=== PATIENT | male | born 1935 | race Caucasian/White ===

== ENCOUNTER → 2017-07-13 | Outpatient (CLI) | payer MEDICARE ==
[~2017-07-13] MED LIST: ACET325T14 PO; ACET650S12 PR; ALBU5SOL6 NPPBCONT; ALLO300T PO; AMIO400T4 PO; AMLO10TA2 PO; APIX5TAB PO; ASPI-515 PO; ATEN100T PO; ATOR20TA9 PO; BISA-49 PO; BISA10SU2 PR; CARV6.2512 PO; CITA40TA5 PO; CLON0.1T PO; DOCU-131 PO; ESOM40CA PO; FLUR15CA3 PO; FURO-92 PO; GUAI-103 PO; HYDR-3245 PO; HYDR-3341 PO; LISI-167 PO; LISI40TA PO; LISI5TAB7 PO; MAGN400O7 PO; MORP15TA3 PO; NITR0.3T SL; ONDA4TAB7 PO; OXYC5TAB3 PO; POLY17PO5 PO; POTA20PA25 PO; PROC5TAB40 PO; REGADENOSON 0.4 MG/5 ML SYRINGE ONE; SIMV20TA PO; SIMV20TA3 PO; TAMS-11 PO; TAMS0.4C2 PO; WARF3TAB PO; WARF4TAB PO; WARF7.5T PO; WARFARIN PO
== END | disposition home or self-care (01) ==
LOC: CFH 08:14
PROVIDERS: ATTEND Internal Medicine Cardiovascular Disease
DX: I25.10 Atherosclerotic heart disease of native coronary artery without angina pectoris (principal)
CPT/HCPCS: 78452; 93017; A9502; J2785

== ENCOUNTER → 2018-05-23 | Outpatient (CLI) | payer MEDICARE ==
[~2018-05-23] MED LIST changes: -AMIO400T4 PO; +AMIO400T5 PO
== END | disposition home or self-care (01) ==
LOC: CFH 12:34
PROVIDERS: ATTEND Physician Assistant Medical
DX: I25.9 Chronic ischemic heart disease, unspecified (principal); I45.10 Unspecified right bundle-branch block; I25.10 Atherosclerotic heart disease of native coronary artery without angina pectoris; I48.0 Paroxysmal atrial fibrillation
CPT/HCPCS: 78452; 93017; A9502; J2785

== ENCOUNTER → 2018-07-24 | Outpatient (CLI) | payer MEDICARE ==
[~2018-07-24] MED LIST changes: -AMLO10TA2 PO; +AMLO10TA6 PO; -REGADENOSON 0.4 MG/5 ML SYRINGE ONE
== END | disposition home or self-care (01) ==
LOC: CFH 10:38
PROVIDERS: ATTEND Physician Assistant Medical
DX: I08.1 Rheumatic disorders of both mitral and tricuspid valves (principal); I10 Essential (primary) hypertension; E78.5 Hyperlipidemia, unspecified; I25.10 Atherosclerotic heart disease of native coronary artery without angina pectoris; I48.0 Paroxysmal atrial fibrillation; R06.02 Shortness of breath; I42.9 Cardiomyopathy, unspecified; Z95.2 Presence of prosthetic heart valve; Z86.73 Personal history of transient ischemic attack (TIA), and cerebral infarction without residual deficits
CPT/HCPCS: 93306

== ENCOUNTER → 2018-08-09 | Outpatient (CLI) | payer MEDICARE ==
[~2018-08-09] MED LIST changes: +OMNIPAQUE 350 MG/ML, 100ML BOTTLE ONE
[2018-08-09 17:04] LABS: CREATININE 1.26 mg/dL (0.7-1.3)
== END | disposition home or self-care (01) ==
LOC: RAD 16:19
PROVIDERS: ATTEND Family Medicine
DX: I65.23 Occlusion and stenosis of bilateral carotid arteries (principal); G31.9 Degenerative disease of nervous system, unspecified; R41.3 Other amnesia
CPT/HCPCS: 36415; 70470; 82565; 93880; Q9967

== ENCOUNTER 2019-05-09 12:03 | Inpatient (IN) | payer MEDICARE ==
[2019-05-09] VITALS (7 sets, daily range): BP systolic 142–239; BP diastolic 77–108
[~2019-05-09] VITALS: Ht 172.7 cm; Wt 94.2 kg
[~2019-05-09 12:03] MED LIST changes: -AMLO10TA6 PO; +AMLO10TA8 PO; +ATOR20TA37 PO; -ATOR20TA9 PO; -CLON0.1T PO; +CLON0.1T22 PO; -OMNIPAQUE 350 MG/ML, 100ML BOTTLE ONE; +SODIUM CHLORIDE 0.9% 1,000 ML IV SCH
--- NOTE | 2019-05-09 12:35 | NUR ---
Assumed care of patient. C/O chest pain radiating to back since 0800. Took nitro x2 with mild relief. Hx aortic valve replacement and pacemaker. NAD. EKG done. Placed on NIBP, puls eox and case monitor. at bedside. Will continue to monitor.
[2019-05-09] MEDS ORDERED: NITR0.4T28 SL (12:39)
[2019-05-09] MEDS ORDERED: ASPIRIN 81 MG TABLET CHEW PO ONE (13:00)
[2019-05-09] MEDS ORDERED: ASPIRIN 81 MG TABLET CHEW ONE (13:09)
[2019-05-09 13:22] LABS: BASOPHILS # (AUTO) 0.03 x10^3/uL (0-0.1); BASOPHILS % (AUTO) 0 % (0-1); EOSINOPHILS # (AUTO) 0.23 x10^3/uL (0-0.4); EOSINOPHILS % (AUTO) 4 % (1-7); LYMPHOCYTES # (AUTO) 0.97 x10^3/uL (1-3.4); LYMPHOCYTES % (AUTO) 16 % (22-44); MD NO; MEAN CORPUSCULAR HEMOGLOBIN 31.9 pg (27.5-34.5); MEAN CORPUSCULAR HGB CONC 32.8 g/dL (33.2-36.2); MEAN CORPUSCULAR VOLUME 97.3 fL (81-97); MEAN PLATELET VOLUME 8.1 fL (7.4-10.4); MONOCYTES # (AUTO) 0.53 x10^3/uL (0.2-0.8); MONOCYTES % (AUTO) 9 % (2-9); NEUTROPHILS % (AUTO) 72 % (42-75); PLATELET COUNT 165 x10^3/uL (130-400); RED BLOOD COUNT 4.58 x10^6/uL (4.38-5.82); RED CELL DISTRIBUTION WIDTH 15.1 % (9.4-14.8)
[2019-05-09] MEDS ORDERED: hydrALAzine 20 MG/ML, 1ML ONE (13:27)
[2019-05-09] MEDS ORDERED: hydrALAzine 20 MG/ML, 1ML IV ONE (13:30)
[2019-05-09 13:32] LABS: ALANINE AMINOTRANSFERASE 22 U/L (12-78); ALBUMIN 3.8 g/dL (3.4-5.0); ANION GAP 8 mmol/L (5-15); CALCIUM 8.8 mg/dL (8.5-10.1); CHLORIDE 107 mmol/L (98-107); CREATININE 0.97 mg/dL (0.7-1.3)
--- NOTE | 2019-05-09 13:32 | NUR ---
BP = 176/87. MD aware. Hydralizine held.
[2019-05-09 13:36] LABS: ALKALINE PHOSPHATASE 151 U/L (45-117); BILIRUBIN,TOTAL 0.5 mg/dL (0.2-1.0); TOTAL PROTEIN 7.2 g/dL (6.4-8.2); TROPONIN I < 0.015 ng/mL (0.000-0.045)
--- NOTE | 2019-05-09 14:10 | NUR ---
Report to TIFFANIE Solano.
[2019-05-09] MEDS ORDERED: ENALAPRILAT 1.25 MG/ML, 2ML IVPush PRN (14:30)
[2019-05-09] MEDS ORDERED: ACETAMINOPHEN 325 MG TABLET PO PRN (14:30)
[2019-05-09] MEDS ORDERED: ONDANSETRON 2MG/ML, 2ML IVPush PRN (14:30)
[2019-05-09] MEDS ORDERED: LABETALOL 5MG/ML, 20ML IVPush PRN (14:30)
[2019-05-09] MEDS: hydrALAzine 20 MG/ML, 1ML IVPush PRN ×2 (14:48→16:26)
[2019-05-09 15:01] LABS: TROPONIN I < 0.015 ng/mL (0.000-0.045)
[2019-05-09] MEDS ORDERED: CARVEDILOL 25 MG TABLET ONE (16:21)
[2019-05-09] MEDS: CARVEDILOL 25 MG TABLET PO SCH ×2 (16:26→21:00)
[2019-05-09] MEDS ORDERED: METOPROLOL TARTRATE 50 MG TABLET PO SCH (18:00)
[2019-05-09 20:23] LABS: TROPONIN I 0.017 ng/mL (0.000-0.045)
[2019-05-09] MEDS: LISINOPRIL 5 MG TABLET PO SCH (20:29)
[2019-05-09] MEDS: ATORVASTATIN 40 MG TABLET PO SCH (20:29)
[2019-05-09] MEDS ORDERED: POTASSIUM CHLORIDE 20 MEQ PACKET PO SCH (21:00)
[2019-05-10] VITALS (9 sets, daily range): BP systolic 130–178; BP diastolic 65–83
[2019-05-10] MEDS: hydrALAzine 20 MG/ML, 1ML IVPush PRN (02:57)
[2019-05-10] MEDS ORDERED: ENALAPRILAT 1.25 MG/ML, 1ML IVPush PRN (04:30)
[2019-05-10 04:55] LABS: BASOPHILS # (AUTO) 0.02 x10^3/uL (0-0.1); BASOPHILS % (AUTO) 0 % (0-1); EOSINOPHILS # (AUTO) 0.18 x10^3/uL (0-0.4); EOSINOPHILS % (AUTO) 3 % (1-7); LYMPHOCYTES # (AUTO) 0.97 x10^3/uL (1-3.4); LYMPHOCYTES % (AUTO) 14 % (22-44); MD NO; MEAN CORPUSCULAR HEMOGLOBIN 32.3 pg (27.5-34.5); MEAN CORPUSCULAR VOLUME 97.8 fL (81-97); MONOCYTES # (AUTO) 0.59 x10^3/uL (0.2-0.8); MONOCYTES % (AUTO) 9 % (2-9); NEUTROPHILS # (AUTO) 4.94 x10^3/uL (1.8-6.8); NEUTROPHILS % (AUTO) 74 % (42-75); PLATELET COUNT 156 x10^3/uL (130-400); RED BLOOD COUNT 4.51 x10^6/uL (4.38-5.82); RED CELL DISTRIBUTION WIDTH 15.3 % (9.4-14.8)
[2019-05-10] MEDS: CARVEDILOL 25 MG TABLET PO SCH ×3 (04:59→21:37)
[2019-05-10 05:04] LABS: ANION GAP 7 mmol/L (5-15); CHLORIDE 107 mmol/L (98-107)
[2019-05-10 05:08] LABS: CHOL/HDL RATIO 2.4; CHOLESTEROL, TOTAL 119 mg/dL (140-239); CREATININE 0.99 mg/dL (0.7-1.3); HDL CHOL % 41 % (26-37); HDL CHOLESTEROL (DIRECT) 49 mg/dL (40-60); LDL CHOLESTEROL,CALCULATED 48 mg/dL (54-169); TRIGLYCERIDES 111 mg/dL (50-200); VLDL CHOLESTEROL 22 mg/dL (0-25)
[2019-05-10] MEDS ORDERED: LISINOPRIL 5 MG TABLET PO SCH (09:00)
[2019-05-10] MEDS ORDERED: POTASSIUM CHLORIDE 20 MEQ TAB.ER.PRT ONE (09:31)
[2019-05-10] MEDS: PANTOPRAZOLE 40 MG IV IVPush SCH (09:36)
[2019-05-10] MEDS: SPIRONOLACTONE 25 MG TABLET PO SCH (09:37)
[2019-05-10] MEDS: TAMSULOSIN 0.4 MG CAP.ER.24H PO SCH (09:37)
[2019-05-10] MEDS: POTASSIUM CHLORIDE 20 MEQ TAB.ER.PRT PO SCH ×2 (09:37→17:10)
[2019-05-10] MEDS: CITALOPRAM 20 MG TABLET PO SCH (09:37)
[2019-05-10] MEDS: ALLOPURINOL 300 MG TABLET PO SCH (09:37)
[2019-05-10] MEDS: ASPIRIN 81 MG TABLET EC PO SCH (09:37)
[2019-05-10] MEDS: LISINOPRIL 5 MG TABLET PO SCH ×2 (09:37→20:23)
[2019-05-10] MEDS ORDERED: MIDAZOLAM 1 MG/ML, 5ML ONE (13:11)
[2019-05-10] MEDS ORDERED: VERAPAMIL 2.5 MG/ML, 2ML ONE (13:12)
[2019-05-10] MEDS ORDERED: LIDOCAINE-MPF 1%, 5ML ONE (13:12)
[2019-05-10] MEDS ORDERED: HEPARIN 1,000 UNITS/ML, 10ML ONE (13:12)
[2019-05-10] MEDS ORDERED: BIVALIRUDIN 250 MG ONE ×2 (13:12→14:41)
[2019-05-10] MEDS ORDERED: FENTANYL PF 100 MCG/2ML ONE ×2 (13:12→14:04)
[2019-05-10] MEDS ORDERED: TICAGRELOR 90 MG TABLET ONE (13:12)
[2019-05-10] MEDS ORDERED: hydrALAzine 20 MG/ML, 1ML ONE (14:16)
[2019-05-10] MEDS: SODIUM CHLORIDE 0.9% 1,000 ML IV SCH ×2 (14:45→22:45)
[2019-05-10] MEDS ORDERED: BIVALIRUDIN 250 MG in SODIUM CHLORIDE 0.9% 50 ML IV SCH (14:45)
[2019-05-10] MEDS: ATORVASTATIN 40 MG TABLET PO SCH (20:22)
[2019-05-10] MEDS: TICAGRELOR 90 MG TABLET PO SCH (20:22)
[2019-05-11] VITALS (7 sets, daily range): BP systolic 143–181; BP diastolic 70–79
[2019-05-11] MEDS ORDERED: ZOLPIDEM 5MG TABLET PO ONE (01:30)
[2019-05-11 04:30] LABS: ANION GAP 9 mmol/L (5-15); CALCIUM 8.9 mg/dL (8.5-10.1); CHLORIDE 107 mmol/L (98-107); CREATININE 0.99 mg/dL (0.7-1.3)
[2019-05-11] MEDS: CARVEDILOL 25 MG TABLET PO SCH (05:45)
[2019-05-11] MEDS: SODIUM CHLORIDE 0.9% 1,000 ML IV SCH (06:45)
[2019-05-11] MEDS: POTASSIUM CHLORIDE 20 MEQ TAB.ER.PRT PO SCH (07:36)
[2019-05-11] MEDS: ASPIRIN 81 MG TABLET EC PO SCH (07:36)
[2019-05-11] MEDS: LISINOPRIL 5 MG TABLET PO SCH (07:37)
[2019-05-11] MEDS: CITALOPRAM 20 MG TABLET PO SCH (07:37)
[2019-05-11] MEDS: SPIRONOLACTONE 25 MG TABLET PO SCH (07:37)
[2019-05-11] MEDS: TAMSULOSIN 0.4 MG CAP.ER.24H PO SCH (07:37)
[2019-05-11] MEDS: ALLOPURINOL 300 MG TABLET PO SCH (07:37)
[2019-05-11] MEDS: PANTOPRAZOLE 40 MG IV IVPush SCH (07:39)
[2019-05-11] MEDS: TICAGRELOR 90 MG TABLET PO SCH (07:40)
[2019-05-11] MEDS ORDERED: CLOPIDOGREL 300 MG TABLET PO ONE (09:00)
[2019-05-11] MEDS ORDERED: LISINOPRIL 10 MG TABLET PO ONE (09:00)
[2019-05-11] MEDS ORDERED: AMLODIPINE 5 MG TABLET PO SCH (09:00)
[2019-05-11] MEDS ORDERED: CARVEDILOL 25 MG TABLET PO SCH ×2 (09:00→18:00)
[2019-05-11] MEDS ORDERED: CARV25TA12 PO (13:33)
[2019-05-11] MEDS ORDERED: CLOP75TA PO (13:33)
[2019-05-11] MEDS ORDERED: LISI-170 PO (13:33)
[2019-05-11] MEDS ORDERED: PANT20TA3 PO (13:33)
[2019-05-11] MEDS ORDERED: SPIR25TA5 PO (13:33)
[2019-05-11] MEDS ORDERED: DIPHENHYDRAMINE 25 MG CAPSULE PO PRN (16:00)
[2019-05-11] MEDS ORDERED: LISINOPRIL 20 MG TABLET PO SCH (21:00)
[2019-05-12] MEDS ORDERED: CLOPIDOGREL 75 MG TABLET PO SCH (09:00)
[2019-05-12] MEDS ORDERED: PANTOPRAZOLE 20MG TABLET PO SCH (09:00)
== END 2019-05-11 18:02 | disposition home health service (06) | DRG 246 ==
LOC: ED 13:48 → INTOOBSV 14:04 → EDIP 14:04 → UNDOADMOB 14:04 → OBSVTOIN 14:04 → 5SO 14:37 → EDIP 14:37 → 5SO 05-11 08:36 → OBSVTOIN 05-11 08:37
PROVIDERS: ADMIT Internal Medicine; ATTEND Internal Medicine
PROC: 0270356 Dilation of Coronary Artery, One Artery, Bifurcation, with Two Drug-eluting Intraluminal Devices, Percutaneous Approach (ICD-10-PCS; principal; 2019-05-10)
PROC: B2111ZZ Fluoroscopy of Multiple Coronary Arteries using Low Osmolar Contrast (ICD-10-PCS; 2019-05-10)
PROC: 4A023N7 Measurement of Cardiac Sampling and Pressure, Left Heart, Percutaneous Approach (ICD-10-PCS; 2019-05-10)
DX: T82.855A Stenosis of coronary artery stent, initial encounter (principal); I50.33 Acute on chronic diastolic (congestive) heart failure; I25.110 Atherosclerotic heart disease of native coronary artery with unstable angina pectoris; I16.9 Hypertensive crisis, unspecified; E66.9 Obesity, unspecified; E78.00 Pure hypercholesterolemia, unspecified; E78.5 Hyperlipidemia, unspecified; F17.210 Nicotine dependence, cigarettes, uncomplicated; F32.9 Major depressive disorder, single episode, unspecified; I10 Essential (primary) hypertension; I25.82 Chronic total occlusion of coronary artery; I35.0 Nonrheumatic aortic (valve) stenosis; K83.8 Other specified diseases of biliary tract; M10.9 Gout, unspecified; E87.6 Hypokalemia; E26.01 Conn's syndrome; N40.0 Benign prostatic hyperplasia without lower urinary tract symptoms; Y84.0 Cardiac catheterization as the cause of abnormal reaction of the patient, or of later complication, without mention of misadventure at the time of the procedure; Y92.89 Other specified places as the place of occurrence of the external cause; Z86.73 Personal history of transient ischemic attack (TIA), and cerebral infarction without residual deficits; I25.2 Old myocardial infarction; Z95.0 Presence of cardiac pacemaker; Z95.3 Presence of xenogenic heart valve; Z90.49 Acquired absence of other specified parts of digestive tract; Z79.899 Other long term (current) drug therapy; Z88.2 Allergy status to sulfonamides; Z68.31 Body mass index [BMI] 31.0-31.9, adult; I11.0 Hypertensive heart disease with heart failure
CPT/HCPCS: 36415; 71275; 80048; 80053; 80061; 83605; 83880; 84145; 84443; 84484; 85025; 93005; 93306; 93454; 93880; 99156; 99157; C1769; C1894; C9600; C9601; G0378; J0583; J1644; J2250; J2405; J3010; C1725; C1874; C1887; C9113; J0360; Q9967

== ENCOUNTER 2019-10-02 10:28 | Observation (INO) | payer MEDICARE ==
[~2019-10-02] VITALS: Ht 172.7 cm; Wt 91.7 kg
[~2019-10-02 10:28] MED LIST changes: -BISA10SU2 PR; +BISA10SU4 PR; +CARV25TA12 PO; +CLOP75TA PO; +LISI-170 PO; +MIRT15TA94 PO; +MORP-29 PO; -MORP15TA3 PO; +NITR0.4T28 SL; +OXYC-302 PO; +PANT20TA3 PO; +SIMV20TA19 PO; -SIMV20TA3 PO; -SODIUM CHLORIDE 0.9% 1,000 ML IV SCH; +SPIR25TA5 PO
[2019-10-02] MEDS ORDERED: CLOP75TA PO (11:08)
[2019-10-02] MEDS ORDERED: MIRT-34 PO (11:08)
[2019-10-02] MEDS ORDERED: SPIR25TA5 PO (11:08)
--- NOTE | 2019-10-02 11:09 | NUR ---
pt to ed for bloody stools x4-5 days and cp since last night. pt reports midsternal cp rad to back relieved with nitro x3 last night. pt states took 1 nitro this am with decrease in pain to "a tolerable 5/10 now." pt states bloody stool started with consitpation after pt took ex-lax and strained to stool. pt reports stool was bright red the first time and has been pick since then. pt connected to all monitors. htn over 200, all other vss. Dr. Iqbal to bs for assessment with pocus. piv established and labs drawn and sent. awaiting further orders.
[2019-10-02 11:24] LABS: ALBUMIN 3.6 g/dL (3.4-5.0); ANION GAP 7 mmol/L (5-15); CALCIUM 8.9 mg/dL (8.5-10.1); CHLORIDE 107 mmol/L (98-107)
[2019-10-02] MEDS ORDERED: MORPHINE SULFATE 4 MG/ML, 1ML ONE (11:25)
[2019-10-02] MEDS ORDERED: ONDANSETRON 2MG/ML, 2ML ONE (11:25)
[2019-10-02 11:27] LABS: BASOPHILS # (AUTO) 0.04 x10^3/uL (0-0.1); BASOPHILS % (AUTO) 1 % (0-1); EOSINOPHILS # (AUTO) 0.16 x10^3/uL (0-0.4); EOSINOPHILS % (AUTO) 3 % (1-7); LYMPHOCYTES # (AUTO) 0.95 x10^3/uL (1-3.4); LYMPHOCYTES % (AUTO) 20 % (22-44); MEAN CORPUSCULAR HEMOGLOBIN 28.3 pg (27.5-34.5); MEAN CORPUSCULAR HGB CONC 31.7 g/dL (33.2-36.2); MEAN CORPUSCULAR VOLUME 89.3 fL (81-97); MEAN PLATELET VOLUME 7.2 fL (7.4-10.4); MONOCYTES # (AUTO) 0.45 x10^3/uL (0.2-0.8); MONOCYTES % (AUTO) 9 % (2-9); NEUTROPHILS % (AUTO) 67 % (42-75); PLATELET COUNT 252 x10^3/uL (130-400); RED BLOOD COUNT 3.39 x10^6/uL (4.38-5.82); RED CELL DISTRIBUTION WIDTH 17.3 % (9.4-14.8)
[2019-10-02 11:28] LABS: TROPONIN I 0.017 ng/mL (0.000-0.045)
[2019-10-02 11:29] LABS: MD NO
[2019-10-02] MEDS ORDERED: ONDANSETRON 2MG/ML, 2ML IVPush ONE (11:30)
[2019-10-02] MEDS ORDERED: MORPHINE SULFATE 4 MG/ML, 1ML IVPush ONE (11:30)
--- NOTE | 2019-10-02 11:30 | NUR ---
PT MEDICATED PER DEC. TOLERATED WELL. VSS. BP IMPROVING. MED REC UPDATED. AWAITING CTA.
[2019-10-02 11:39] LABS: ALBUMIN 3.6 g/dL (3.4-5.0); BILIRUBIN, DIRECT 0.1 mg/dL (0.1-0.2)
[2019-10-02 11:42] LABS: BILIRUBIN,INDIRECT 0.3 mg/dL (0.0-2.0); BILIRUBIN,TOTAL 0.4 mg/dL (0.2-1.0); TOTAL PROTEIN 7.2 g/dL (6.4-8.2)
--- NOTE | 2019-10-02 11:42 | NUR ---
pt to ct.
--- NOTE | 2019-10-02 11:55 | NUR ---
pt back from ct.
--- NOTE | 2019-10-02 12:00 | NUR ---
lab to bs
--- NOTE | 2019-10-02 12:05 | NUR ---
pt resting in room. htn, all other vss on ra. cta complete. lab draw complete. awaiting results.
[2019-10-02 12:23] LABS: INTERNATIONAL NORMALIZED RATIO 1.06 (0.93-1.1); PROTHROMBIN TIME 11.1 Seconds (9.6-11.5)
--- NOTE | 2019-10-02 12:48 | NUR ---
pt resting in room. htn, all other vss on ra. all results back at this time. chart up for recheck.
[2019-10-02] MEDS ORDERED: OMNIPAQUE 350 MG/ML, 100ML BOTTLE ONE (12:57)
--- NOTE | 2019-10-02 14:08 | NUR ---
pt resting in room. htn, all other vss on ra. no needs expressed. call light within reach. plan to admit. awaiting admit orders.
--- NOTE | 2019-10-02 15:04 | NUR ---
pt resting in room. htn, all other vss. no needs expressed. call light within reach. awaiting room assignment.
--- NOTE | 2019-10-02 15:31 | NUR ---
report to nolvia ruiz. pt ready for transport.
[2019-10-02] MEDS ORDERED: morphine SULFATE 10 MG/ML, 1ML IVPush PRN (16:30)
[2019-10-02] MEDS ORDERED: ONDANSETRON 2MG/ML, 2ML IVPush PRN (16:30)
[2019-10-02] MEDS ORDERED: ACETAMINOPHEN 325 MG TABLET PO PRN (16:30)
[2019-10-02] MEDS ORDERED: hydrALAzine 20 MG/ML, 1ML IVPush PRN (16:30)
--- NOTE | 2019-10-02 16:38 | NUR ---
changed from medical to cardtele. awaiting room assignment.
[2019-10-02 16:58] LABS: TROPONIN I 0.026 ng/mL (0.000-0.045)
--- NOTE | 2019-10-02 17:27 | NUR ---
BREAK RN: PT REQUESTED WATER. WATER GIVEN, VERBALIZED NO NEEDS AT THIS TIME
[2019-10-02] MEDS: CARVEDILOL 25 MG TABLET PO SCH (18:29)
--- NOTE | 2019-10-02 18:32 | NUR ---
pt resting in room. vss. pt medicated per mar. no needs expressed. call light within reach. plan to move to room 27.
--- NOTE | 2019-10-02 19:04 | NUR ---
reprot to TIFFANIE Canales. urinal provided.
[2019-10-02] MEDS: PANTOPROZOLE 40MG TABLET PO SCH (21:00)
[2019-10-02] MEDS ORDERED: PANTOPRAZOLE 20MG TABLET PO SCH (21:00)
[2019-10-02 21:33] LABS: TROPONIN I 0.032 ng/mL (0.000-0.045)
--- NOTE | 2019-10-02 21:43 | NUR ---
PT PLACED ON 4 LNC. PT GIVEN H20. PT TOLERATED WATER WELL. NO S/SX OF ASPIRATION. PT REMAINS ON MONITOR AND VSS.
[2019-10-02] MEDS ORDERED: GOLYTELY 4,000ML ORAL.SOL PO ONE (22:30)
[2019-10-02] MEDS ORDERED: LISINOPRIL 20 MG TABLET ONE (22:34)
[2019-10-02] MEDS ORDERED: MIRTAZAPINE 15 MG TABLET ONE (22:35)
[2019-10-02] MEDS ORDERED: PANTOPRAZOLE 20MG TABLET ONE (22:35)
[2019-10-02] MEDS: MIRTAZAPINE 15 MG TABLET PO SCH (22:39)
[2019-10-02] MEDS: ATORVASTATIN 20 MG TABLET PO SCH (22:40)
[2019-10-02] MEDS: LISINOPRIL 20 MG TABLET PO SCH (22:41)
[2019-10-02 22:53] VITALS: BP 188/100
[2019-10-02 23:54] VITALS: BP 202/74
[2019-10-03 02:49] VITALS: BP 190/73
[2019-10-03 05:28] LABS: BASOPHILS # (AUTO) 0.02 x10^3/uL (0-0.1); BASOPHILS % (AUTO) 0 % (0-1); EOSINOPHILS # (AUTO) 0.15 x10^3/uL (0-0.4); EOSINOPHILS % (AUTO) 3 % (1-7); LYMPHOCYTES # (AUTO) 0.67 x10^3/uL (1-3.4); LYMPHOCYTES % (AUTO) 15 % (22-44); MD NO; MEAN CORPUSCULAR HEMOGLOBIN 27.9 pg (27.5-34.5); MEAN CORPUSCULAR HGB CONC 31.2 g/dL (33.2-36.2); MEAN CORPUSCULAR VOLUME 89.4 fL (81-97); MEAN PLATELET VOLUME 6.9 fL (7.4-10.4); MONOCYTES # (AUTO) 0.42 x10^3/uL (0.2-0.8); MONOCYTES % (AUTO) 9 % (2-9); NEUTROPHILS # (AUTO) 3.21 x10^3/uL (1.8-6.8); NEUTROPHILS % (AUTO) 72 % (42-75); PLATELET COUNT 200 x10^3/uL (130-400); RED BLOOD COUNT 3.04 x10^6/uL (4.38-5.82); RED CELL DISTRIBUTION WIDTH 17.9 % (9.4-14.8)
[2019-10-03 05:31] LABS: ALBUMIN 3.2 g/dL (3.4-5.0); ANION GAP 5 mmol/L (5-15); CALCIUM 8.2 mg/dL (8.5-10.1); CHLORIDE 107 mmol/L (98-107)
[2019-10-03 05:34] LABS: ALANINE AMINOTRANSFERASE 45 U/L (12-78); ALKALINE PHOSPHATASE 217 U/L (45-117); BILIRUBIN,TOTAL 0.5 mg/dL (0.2-1.0); CREATININE 1.18 mg/dL (0.7-1.3); TOTAL PROTEIN 6.3 g/dL (6.4-8.2)
[2019-10-03] MEDS: CARVEDILOL 25 MG TABLET PO SCH ×2 (06:00→18:04)
[2019-10-03] MEDS: ALLOPURINOL 300 MG TABLET PO SCH (08:51)
[2019-10-03] MEDS: CITALOPRAM HYDROBROMIDE 40 MG PO SCH (08:51)
[2019-10-03] MEDS: PANTOPROZOLE 40MG TABLET PO SCH ×2 (08:51→21:05)
[2019-10-03] MEDS: SPIRONOLACTONE 25 MG TABLET PO SCH (08:51)
[2019-10-03] MEDS: LISINOPRIL 20 MG TABLET PO SCH ×2 (08:52→21:05)
[2019-10-03 08:56] VITALS: BP 165/66
[2019-10-03] MEDS ORDERED: PROPOFOL 10 MG/ML, 20ML ONE (10:25)
[2019-10-03] MEDS ORDERED: hydrALAzine 20 MG/ML, 1ML IV PRN (11:00)
[2019-10-03] MEDS ORDERED: ALBUTEROL SULFATE 2.5 MG/3 ML NPPB PRN (11:00)
[2019-10-03] MEDS ORDERED: FENTANYL PF 100 MCG/2ML IV PRN (11:00)
[2019-10-03] MEDS ORDERED: LABETALOL 5MG/ML, 20ML IV PRN (11:00)
[2019-10-03] MEDS ORDERED: PROMETHAZINE 25 MG/ML, 1ML IV PRN (11:00)
[2019-10-03] MEDS ORDERED: HYDROmorphone 2 MG/ML, 1ML IVPush PRN (11:00)
[2019-10-03] MEDS ORDERED: HALOPERIDOL 5 MG/ML IV PRN (11:00)
[2019-10-03] MEDS ORDERED: OXYcodone 5 MG/5 ML ORAL.SOL UDC PO PRN (11:00)
[2019-10-03 11:44] VITALS: BP 145/72
[2019-10-03 14:23] VITALS: BP 114/68
[2019-10-03 17:38] VITALS: BP 150/67
[2019-10-03 18:47] VITALS: BP 139/53
[2019-10-03] MEDS: MIRTAZAPINE 15 MG TABLET PO SCH (21:05)
[2019-10-03] MEDS: ATORVASTATIN 20 MG TABLET PO SCH (21:05)
[2019-10-04 02:43] VITALS: BP 130/62
[2019-10-04 04:28] LABS: BASOPHILS # (AUTO) 0.01 x10^3/uL (0-0.1); BASOPHILS % (AUTO) 0 % (0-1); EOSINOPHILS # (AUTO) 0.28 x10^3/uL (0-0.4); EOSINOPHILS % (AUTO) 6 % (1-7); LYMPHOCYTES # (AUTO) 0.87 x10^3/uL (1-3.4); LYMPHOCYTES % (AUTO) 17 % (22-44); MD NO; MEAN CORPUSCULAR HEMOGLOBIN 28.1 pg (27.5-34.5); MEAN CORPUSCULAR VOLUME 90.5 fL (81-97); MEAN PLATELET VOLUME 7.1 fL (7.4-10.4); MONOCYTES # (AUTO) 0.48 x10^3/uL (0.2-0.8); MONOCYTES % (AUTO) 9 % (2-9); NEUTROPHILS # (AUTO) 3.48 x10^3/uL (1.8-6.8); NEUTROPHILS % (AUTO) 68 % (42-75); PLATELET COUNT 185 x10^3/uL (130-400); RED BLOOD COUNT 2.91 x10^6/uL (4.38-5.82)
[2019-10-04 04:37] LABS: ALANINE AMINOTRANSFERASE 30 U/L (12-78); ALBUMIN 2.9 g/dL (3.4-5.0); ANION GAP 3 mmol/L (5-15); CALCIUM 8.1 mg/dL (8.5-10.1); CHLORIDE 107 mmol/L (98-107); CREATININE 1.29 mg/dL (0.7-1.3); GAMMA GLUTAMYL TRANSPEPTIDASE 145 U/L (15-85)
[2019-10-04 04:40] LABS: ALKALINE PHOSPHATASE 178 U/L (45-117); BILIRUBIN,TOTAL 0.2 mg/dL (0.2-1.0); TOTAL PROTEIN 5.9 g/dL (6.4-8.2)
[2019-10-04] MEDS: CARVEDILOL 25 MG TABLET PO SCH (06:36)
[2019-10-04 07:09] VITALS: BP 148/75
[2019-10-04] MEDS ORDERED: DOCU-131 PO (07:55)
[2019-10-04] MEDS: PANTOPROZOLE 40MG TABLET PO SCH (09:41)
[2019-10-04] MEDS: CITALOPRAM HYDROBROMIDE 40 MG PO SCH (09:41)
[2019-10-04] MEDS: ALLOPURINOL 300 MG TABLET PO SCH (09:41)
[2019-10-04] MEDS: SPIRONOLACTONE 25 MG TABLET PO SCH (09:41)
[2019-10-04] MEDS: LISINOPRIL 20 MG TABLET PO SCH (09:44)
[2019-11-26] MEDS ORDERED: PANT40TA5 PO (14:37)
[2019-11-26] MEDS ORDERED: FERR324T5 PO (14:37)
== END 2019-10-04 12:17 | disposition home or self-care (01) ==
LOC: ED 14:14 → INTOOBSV 14:20 → EDIP 14:20 → OBSVTOIN 16:07 → INTOOBSV 16:07 → 5SO 23:49 → DCLOUNGE 10-04 11:55
PROVIDERS: ADMIT Internal Medicine; ATTEND Internal Medicine
DX: K92.2 Gastrointestinal hemorrhage, unspecified (principal); K63.5 Polyp of colon; K64.4 Residual hemorrhoidal skin tags; K60.2 Anal fissure, unspecified; R10.9 Unspecified abdominal pain; I11.0 Hypertensive heart disease with heart failure; I50.32 Chronic diastolic (congestive) heart failure; I25.10 Atherosclerotic heart disease of native coronary artery without angina pectoris; I73.9 Peripheral vascular disease, unspecified; K21.9 Gastro-esophageal reflux disease without esophagitis; M10.9 Gout, unspecified; F32.9 Major depressive disorder, single episode, unspecified; E78.5 Hyperlipidemia, unspecified; R10.13 Epigastric pain; D64.9 Anemia, unspecified; I25.2 Old myocardial infarction; K92.1 Melena; R07.9 Chest pain, unspecified; Z95.0 Presence of cardiac pacemaker; Z95.2 Presence of prosthetic heart valve; Z85.46 Personal history of malignant neoplasm of prostate; Z79.899 Other long term (current) drug therapy; Z86.73 Personal history of transient ischemic attack (TIA), and cerebral infarction without residual deficits; Z86.010 Personal history of colon polyps; Z79.02 Long term (current) use of antithrombotics/antiplatelets
CPT/HCPCS: 36415; 45380; 71275; 74174; 80048; 80053; 80076; 82040; 82977; 83605; 83690; 83735; 84100; 84484; 85025; 85610; 88305; 93005; 96374; 96375; 99285; G0378; J2270; J2405; J2704; Q9967

== ENCOUNTER 2020-02-18 12:51 | Observation (INO) | payer MEDICARE ==
[~2020-02-18] VITALS: Ht 172.7 cm; Wt 84.2 kg
[~2020-02-18 12:51] MED LIST changes: +FERR324T5 PO; +MIRT-34 PO; +PANT40TA5 PO
[2020-02-18] MEDS ORDERED: SODIUM CHLORIDE FLUSH 10ML SYR IVF ONE (13:30)
[2020-02-18] MEDS ORDERED: ASPIRIN 81 MG TABLET CHEW ONE (13:47)
[2020-02-18 13:49] LABS: BASOPHILS # (AUTO) 0.01 x10^3/uL (0-0.1); BASOPHILS % (AUTO) 0 % (0-1); EOSINOPHILS # (AUTO) 0.06 x10^3/uL (0-0.4); EOSINOPHILS % (AUTO) 1 % (1-7); LYMPHOCYTES # (AUTO) 0.68 x10^3/uL (1-3.4); LYMPHOCYTES % (AUTO) 6 % (22-44); MD NO; MEAN CORPUSCULAR HEMOGLOBIN 29.9 pg (27.5-34.5); MEAN CORPUSCULAR HGB CONC 32.2 g/dL (33.2-36.2); MEAN CORPUSCULAR VOLUME 92.8 fL (81-97); MEAN PLATELET VOLUME 7.7 fL (7.4-10.4); MONOCYTES # (AUTO) 0.55 x10^3/uL (0.2-0.8); MONOCYTES % (AUTO) 5 % (2-9); NEUTROPHILS # (AUTO) 9.79 x10^3/uL (1.8-6.8); NEUTROPHILS % (AUTO) 88 % (42-75); PLATELET COUNT 239 x10^3/uL (130-400); RED BLOOD COUNT 4.05 x10^6/uL (4.38-5.82); RED CELL DISTRIBUTION WIDTH 15.9 % (9.4-14.8)
[2020-02-18 13:50] LABS: INTERNATIONAL NORMALIZED RATIO 1.07 (0.93-1.1); PROTHROMBIN TIME 11.4 Seconds (9.6-11.5)
--- NOTE | 2020-02-18 13:50 | NUR ---
PT STATES HE RECEIVED 4 CHEWABLE ASPIRIN BY [facility] ON THE WAY TO HOSPITAL
[2020-02-18 13:53] LABS: ALBUMIN 2.9 g/dL (3.4-5.0); ANION GAP 8 mmol/L (5-15); CHLORIDE 99 mmol/L (98-107); CREATININE 1.51 mg/dL (0.7-1.3)
[2020-02-18 13:57] LABS: TROPONIN I < 0.015 ng/mL (0.000-0.045)
[2020-02-18] MEDS ORDERED: ASPIRIN 81 MG TABLET CHEW PO ONE (14:00)
[2020-02-18] MEDS ORDERED: IRON PO (14:45)
--- NOTE | 2020-02-18 14:49 | NUR ---
BREAK RN NOTE: PT'S VS REASSESSED. PT A&O, RESPS EVEN AND UNLABORED. PACED ON CARDIAC MONTIOR, RATE 60'S WITH NO ECTOPY. PT DENIES PAIN. MED REC COMPLETED. PER MD PATEL, PT TO BE ADMITTED. MED REC COMPLETED. AWAITING ADMIT ORDER AND ROOM ASSIGNMENT AT THIS TIME. PT DENIES PAIN.
[2020-02-18] MEDS ORDERED: SODIUM CHLORIDE FLUSH 10ML SYR IVF PRN (15:00)
--- NOTE | 2020-02-18 15:22 | NUR ---
REPORT GIVEN BACK TO PRIMARY TIFFANIE RUIZ.
--- NOTE | 2020-02-18 15:30 | NUR ---
REPORT TO FIDELINA LOWE PT TO BE TRANSPORTED TO FLOOR.
[2020-02-18] MEDS ORDERED: ACETAMINOPHEN 325 MG TABLET PO PRN (16:00)
[2020-02-18] MEDS ORDERED: NITROGLYCERIN 0.4 MG/SPRAY SL PRN (16:00)
[2020-02-18] MEDS ORDERED: NITROGLYCERIN 0.4 MG BOTTLE (25 TABS) SL PRN (16:00)
[2020-02-18] MEDS ORDERED: BACLOFEN 10 MG TABLET PO PRN (16:00)
[2020-02-18] MEDS ORDERED: morphine SULFATE 10 MG/ML, 1ML IVPush PRN (16:00)
[2020-02-18] MEDS ORDERED: morphine SULFATE 10 MG/ML, 1ML IV PRN (16:00)
[2020-02-18 16:34] LABS: CHOL/HDL RATIO 3.4; LDL/HDL RATIO 1.9 (0.5-3.0)
[2020-02-18] MEDS: SODIUM CHLORIDE 0.9% 1,000 ML IV SCH (16:34)
[2020-02-18 16:36] VITALS: BP 126/61
[2020-02-18] MEDS: CARVEDILOL 25 MG TABLET PO SCH (18:31)
[2020-02-18 19:14] VITALS: BP 146/61
[2020-02-18] MEDS: MIRTAZAPINE 15 MG TABLET PO SCH (20:38)
[2020-02-18] MEDS: PANTOPRAZOLE 40MG TABLET PO SCH (20:38)
[2020-02-18] MEDS: SODIUM CHLORIDE FLUSH 10ML SYR IVF SCH (20:38)
[2020-02-18] MEDS: ATORVASTATIN 40 MG TABLET PO SCH (20:38)
[2020-02-18] MEDS ORDERED: LISINOPRIL 20 MG TABLET PO SCH (21:00)
[2020-02-18 21:42] LABS: TROPONIN I < 0.015 ng/mL (0.000-0.045)
[2020-02-18 22:52] LABS: MICROSCOPIC NOT IND
[2020-02-18 22:54] LABS: CULTURE INDICATED? NO
[2020-02-19] VITALS (13 sets, daily range): BP systolic 114–149; BP diastolic 60–72
[2020-02-19] MEDS: SODIUM CHLORIDE 0.9% 1,000 ML IV SCH ×3 (01:38→21:13)
[2020-02-19 04:17] LABS: ANION GAP 8 mmol/L (5-15); CALCIUM 8.7 mg/dL (8.5-10.1); CHLORIDE 104 mmol/L (98-107); CREATININE 1.15 mg/dL (0.7-1.3)
[2020-02-19 04:21] LABS: TROPONIN I < 0.015 ng/mL (0.000-0.045)
[2020-02-19] MEDS: ASPIRIN 325 MG TABLET EC PO SCH (06:00)
[2020-02-19] MEDS: CARVEDILOL 25 MG TABLET PO SCH ×2 (06:17→17:45)
[2020-02-19] MEDS: ALLOPURINOL 100 MG TABLET PO SCH (07:56)
[2020-02-19] MEDS: SODIUM CHLORIDE FLUSH 10ML SYR IVF SCH ×2 (07:56→21:13)
[2020-02-19] MEDS: CLOPIDOGREL 75 MG TABLET PO SCH (07:57)
[2020-02-19] MEDS: PANTOPRAZOLE 40MG TABLET PO SCH ×2 (07:57→21:13)
[2020-02-19] MEDS: CITALOPRAM 20 MG TABLET PO SCH (07:57)
[2020-02-19] MEDS ORDERED: REGADENOSON 0.4 MG/5 ML SYRINGE ONE (08:58)
[2020-02-19] MEDS ORDERED: ALLOPURINOL 300 MG TABLET PO SCH (09:00)
[2020-02-19] MEDS ORDERED: SPIRONOLACTONE 25 MG TABLET PO SCH (09:00)
[2020-02-19] MEDS: ATORVASTATIN 40 MG TABLET PO SCH (21:13)
[2020-02-19] MEDS: MIRTAZAPINE 15 MG TABLET PO SCH (21:13)
[2020-02-20 01:33] VITALS: BP 132/81
[2020-02-20 05:45] LABS: ALBUMIN 2.5 g/dL (3.4-5.0); ANION GAP 6 mmol/L (5-15); CALCIUM 8.5 mg/dL (8.5-10.1); CHLORIDE 109 mmol/L (98-107)
[2020-02-20 05:46] LABS: BASOPHILS # (AUTO) 0.02 x10^3/uL (0-0.1); BASOPHILS % (AUTO) 0 % (0-1); EOSINOPHILS # (AUTO) 0.14 x10^3/uL (0-0.4); EOSINOPHILS % (AUTO) 2 % (1-7); LYMPHOCYTES # (AUTO) 0.62 x10^3/uL (1-3.4); LYMPHOCYTES % (AUTO) 8 % (22-44); MD NO; MEAN CORPUSCULAR HGB CONC 32.3 g/dL (33.2-36.2); MEAN CORPUSCULAR VOLUME 92.8 fL (81-97); MONOCYTES # (AUTO) 0.48 x10^3/uL (0.2-0.8); MONOCYTES % (AUTO) 6 % (2-9); NEUTROPHILS % (AUTO) 84 % (42-75); PLATELET COUNT 198 x10^3/uL (130-400); RED BLOOD COUNT 3.69 x10^6/uL (4.38-5.82); RED CELL DISTRIBUTION WIDTH 15.7 % (9.4-14.8)
[2020-02-20 05:48] LABS: ALANINE AMINOTRANSFERASE 35 U/L (12-78); ALKALINE PHOSPHATASE 157 U/L (45-117); BILIRUBIN,TOTAL 0.3 mg/dL (0.2-1.0); CREATININE 0.88 mg/dL (0.7-1.3); TOTAL PROTEIN 6.2 g/dL (6.4-8.2)
[2020-02-20 06:07] VITALS: BP 152/74
[2020-02-20] MEDS: CARVEDILOL 25 MG TABLET PO SCH (06:20)
[2020-02-20] MEDS: ASPIRIN 325 MG TABLET EC PO SCH (06:20)
[2020-02-20 06:55] VITALS: BP 162/82
[2020-02-20 07:00] VITALS: BP 141/72
[2020-02-20] MEDS: CLOPIDOGREL 75 MG TABLET PO SCH (08:23)
[2020-02-20] MEDS: ALLOPURINOL 100 MG TABLET PO SCH (08:23)
[2020-02-20] MEDS: CITALOPRAM 20 MG TABLET PO SCH (08:23)
[2020-02-20] MEDS: PANTOPRAZOLE 40MG TABLET PO SCH (08:23)
[2020-02-20] MEDS: SODIUM CHLORIDE FLUSH 10ML SYR IVF SCH (08:24)
[2020-02-20] MEDS ORDERED: LISINOPRIL 10 MG TABLET PO SCH (09:00)
[2020-02-20] MEDS ORDERED: REGADENOSON 0.4 MG/5 ML SYRINGE ONE (09:09)
[2020-02-20 14:30] VITALS: BP 162/72
== END 2020-02-20 15:10 | disposition home or self-care (01) ==
LOC: ED 13:17 → UNDOADMOB 13:59 → EDIP 13:59 → INTOOBSV 14:50 → 5SO 15:48
PROVIDERS: ADMIT Hospitalist; ATTEND Internal Medicine
DX: R07.89 Other chest pain (principal); D72.829 Elevated white blood cell count, unspecified; D64.9 Anemia, unspecified; E78.00 Pure hypercholesterolemia, unspecified; E78.5 Hyperlipidemia, unspecified; I11.0 Hypertensive heart disease with heart failure; I25.110 Atherosclerotic heart disease of native coronary artery with unstable angina pectoris; I25.2 Old myocardial infarction; K21.9 Gastro-esophageal reflux disease without esophagitis; I50.32 Chronic diastolic (congestive) heart failure; R55 Syncope and collapse; M10.9 Gout, unspecified; I73.9 Peripheral vascular disease, unspecified; N17.0 Acute kidney failure with tubular necrosis; N40.0 Benign prostatic hyperplasia without lower urinary tract symptoms; I35.0 Nonrheumatic aortic (valve) stenosis; I07.1 Rheumatic tricuspid insufficiency; Z66 Do not resuscitate; Z79.02 Long term (current) use of antithrombotics/antiplatelets; Z79.899 Other long term (current) drug therapy; Z85.46 Personal history of malignant neoplasm of prostate; Z87.891 Personal history of nicotine dependence; Z95.0 Presence of cardiac pacemaker; Z86.73 Personal history of transient ischemic attack (TIA), and cerebral infarction without residual deficits; Z95.2 Presence of prosthetic heart valve; Z95.5 Presence of coronary angioplasty implant and graft
CPT/HCPCS: 36415; 71045; 78452; 80048; 80053; 80061; 81003; 82040; 82607; 82728; 83036; 83880; 84484; 85025; 85610; 86850; 86900; 93005; 93017; 93308; 93321; 93325; 93880; 96360; 96361; 97162; 97166; 99285; A9502; C9898; G0378; J2785; J7030

== ENCOUNTER 2020-03-23 04:26 | Inpatient (IN) | payer MEDICARE ==
[~2020-03-23] VITALS: Ht 172.7 cm; Wt 85.4 kg
[~2020-03-23 04:26] MED LIST changes: +IRON PO
--- NOTE | 2020-03-23 04:39 | NUR ---
PA AT BEDSIDE TO ASSESS PT
[2020-03-23] MEDS ORDERED: PANTOPRAZOLE 80 MG in SODIUM CHLORIDE 0.9% 50 ML IVPB ONE (04:46)
[2020-03-23] MEDS ORDERED: SODIUM CHLORIDE FLUSH 10ML SYR IVF ONE (05:00)
[2020-03-23] MEDS ORDERED: ONDANSETRON 2MG/ML, 2ML IVPush ONE (05:00)
[2020-03-23] MEDS ORDERED: ONDANSETRON 2MG/ML, 2ML ONE (05:04)
--- NOTE | 2020-03-23 05:07 | NUR ---
PT MEDICATED PER JAN 02 RIGHTS VERIFIED
--- NOTE | 2020-03-23 05:46 | NUR ---
MD AT BEDSIDE TO ASSESS PT AND DISCUSS POC
[2020-03-23 06:07] LABS: BASOPHILS # (AUTO) 0.03 x10^3/uL (0-0.1); BASOPHILS % (AUTO) 0 % (0-1); EOSINOPHILS # (AUTO) 0.01 x10^3/uL (0-0.4); EOSINOPHILS % (AUTO) 0 % (1-7); LYMPHOCYTES # (AUTO) 0.47 x10^3/uL (1-3.4); LYMPHOCYTES % (AUTO) 3 % (22-44); MD NO; MEAN CORPUSCULAR HEMOGLOBIN 30.3 pg (27.5-34.5); MEAN CORPUSCULAR HGB CONC 32.2 g/dL (33.2-36.2); MEAN CORPUSCULAR VOLUME 94.1 fL (81-97); MEAN PLATELET VOLUME 7.7 fL (7.4-10.4); MONOCYTES # (AUTO) 0.38 x10^3/uL (0.2-0.8); MONOCYTES % (AUTO) 3 % (2-9); NEUTROPHILS % (AUTO) 94 % (42-75); PLATELET COUNT 222 x10^3/uL (130-400); RED BLOOD COUNT 3.33 x10^6/uL (4.38-5.82); RED CELL DISTRIBUTION WIDTH 17.1 % (9.4-14.8)
[2020-03-23 06:17] LABS: ALBUMIN 2.6 g/dL (3.4-5.0); ANION GAP 7 mmol/L (5-15); CALCIUM 8.3 mg/dL (8.5-10.1); CHLORIDE 102 mmol/L (98-107); CREATININE 1.01 mg/dL (0.7-1.3)
[2020-03-23 06:21] LABS: TROPONIN I 0.022 ng/mL (0.000-0.045)
--- NOTE | 2020-03-23 06:42 | NUR ---
PT PROVIDED URINAL AND EDUCATED ON NEED FOR URINE SAMPLE, PT STS HE DOES NOT HAVE TO GO RIGHT NOW. PT INFORMED THAT SAMPLE IS NEEDED SOON HE IS ABLE TO VOID.
--- NOTE | 2020-03-23 06:53 | NUR ---
REPORT TO DULCE
--- NOTE | 2020-03-23 07:02 | NUR ---
REPORT FROM MARISOL. PT RESTING. VSS
--- NOTE | 2020-03-23 07:41 | NUR ---
PT VOIDED 200 ML IN URINAL, UA SENT. PT CO BACK PAIN. REPOSITIONED W PILLOW.
[2020-03-23 07:58] LABS: MICROSCOPIC INDICATED
--- NOTE | 2020-03-23 08:30 | NUR ---
PT REPOSITIONED FOR COMFORT. VSS
[2020-03-23] MEDS ORDERED: MORPHINE SULFATE 4 MG/ML, 1ML ONE (08:54)
[2020-03-23] MEDS ORDERED: MORPHINE SULFATE 4 MG/ML, 1ML IVPush ONE (09:00)
--- NOTE | 2020-03-23 09:00 | NUR ---
MEDICATED FOR PAIN. PT CO BACK PAIN
[2020-03-23] MEDS ORDERED: NITROGLYCERIN SINGLE TAB 0.4 MG SL PRN (09:30)
[2020-03-23] MEDS ORDERED: ENOXAPARIN 40 MG/0.4 ML SQ SCH (09:30)
[2020-03-23] MEDS ORDERED: CEFTRIAXONE PMX 1GM/50ML 50 ML IV SCH (09:30)
[2020-03-23] MEDS ORDERED: ONDANSETRON ODT 4 MG PO PRN (09:30)
[2020-03-23] MEDS ORDERED: ONDANSETRON 2MG/ML, 2ML IVPush PRN (09:30)
[2020-03-23] MEDS: FERROUS SULFATE 325 MG TABLET PO SCH (09:30)
[2020-03-23] MEDS ORDERED: OMNIPAQUE 350 MG/ML, 100ML BOTTLE ONE (09:55)
[2020-03-23] MEDS ORDERED: ENOXAPARIN 40 MG/0.4 ML ONE (10:02)
[2020-03-23] MEDS ORDERED: CEFTRIAXONE PMX 1GM/50ML 50 ML ONE (10:03)
[2020-03-23] MEDS: SODIUM CHLORIDE 0.9% 1,000 ML IV SCH ×2 (10:06→23:27)
[2020-03-23 10:13] LABS: HCT (SEDRATE) 31.3 % (39.2-51.8)
--- NOTE | 2020-03-23 10:15 | NUR ---
BLOOD CULTURES DRAWN BEFORE ABX. PT RESTING. STATES PAIN IS BETTER. VSS
--- NOTE | 2020-03-23 10:28 | NUR ---
BENEDICT, CELL. CALLED FOR UPDATE. PT OK TO GIVE INFO
--- NOTE | 2020-03-23 11:22 | NUR ---
REPORT TO CHERYL
[2020-03-23 11:25] LABS: ALBUMIN 2.6 g/dL (3.4-5.0); BILIRUBIN, DIRECT 0.5 mg/dL (0.1-0.2)
[2020-03-23 11:27] LABS: BILIRUBIN,INDIRECT 0.4 mg/dL (0.0-2.0); BILIRUBIN,TOTAL 0.9 mg/dL (0.2-1.0); TOTAL PROTEIN 6.8 g/dL (6.4-8.2)
[2020-03-23 12:02] VITALS: BP 157/74
[2020-03-23 12:10] VITALS: BP 157/74
[2020-03-23] MEDS: MORPHINE SULFATE 4 MG/ML, 1ML IVPush PRN (14:06)
[2020-03-23] MEDS ORDERED: ACETAMINOPHEN 650 MG/20.3 ML UDC ONE (15:49)
[2020-03-23] MEDS: LACTOBACILLUS CHEW TABLET PO SCH ×2 (17:06→20:54)
[2020-03-23] MEDS: CARVEDILOL 25 MG TABLET PO SCH (17:07)
[2020-03-23] MEDS: ACETAMINOPHEN 325 MG TABLET PO PRN (17:07)
[2020-03-23 18:51] VITALS: BP 101/54
[2020-03-23] MEDS: LISINOPRIL 20 MG TABLET PO SCH (20:54)
[2020-03-23] MEDS: ATORVASTATIN 20 MG TABLET PO SCH (20:54)
[2020-03-23] MEDS: MIRTAZAPINE 15 MG TABLET PO SCH (20:54)
[2020-03-23] MEDS ORDERED: VANCOMYCIN PER PHARMACY MC PRN (23:00)
[2020-03-23] MEDS ORDERED: VANCOMYCIN 2,100 MG in SODIUM CHLORIDE 0.9% 500 ML IV ONE (23:00)
[2020-03-23] MEDS ORDERED: PHARMACOKINETIC CONSULTATION MC ONE (23:00)
[2020-03-23] MEDS ORDERED: PHARMACOKINETIC MONITORING MC PRN (23:00)
[2020-03-24 01:52] VITALS: BP 99/58
[2020-03-24 05:47] LABS: BASOPHILS # (AUTO) 0.02 x10^3/uL (0-0.1); BASOPHILS % (AUTO) 0 % (0-1); EOSINOPHILS # (AUTO) 0.18 x10^3/uL (0-0.4); EOSINOPHILS % (AUTO) 3 % (1-7); LYMPHOCYTES # (AUTO) 0.58 x10^3/uL (1-3.4); LYMPHOCYTES % (AUTO) 8 % (22-44); MD NO; MEAN CORPUSCULAR HEMOGLOBIN 30.7 pg (27.5-34.5); MEAN CORPUSCULAR HGB CONC 32.8 g/dL (33.2-36.2); MEAN CORPUSCULAR VOLUME 93.6 fL (81-97); MEAN PLATELET VOLUME 7.9 fL (7.4-10.4); MONOCYTES # (AUTO) 0.48 x10^3/uL (0.2-0.8); MONOCYTES % (AUTO) 7 % (2-9); NEUTROPHILS # (AUTO) 5.88 x10^3/uL (1.8-6.8); NEUTROPHILS % (AUTO) 82 % (42-75); PLATELET COUNT 210 x10^3/uL (130-400); RED BLOOD COUNT 3.32 x10^6/uL (4.38-5.82); RED CELL DISTRIBUTION WIDTH 17.2 % (9.4-14.8)
[2020-03-24 05:59] LABS: ANION GAP 6 mmol/L (5-15); CALCIUM 8.4 mg/dL (8.5-10.1); CHLORIDE 104 mmol/L (98-107)
[2020-03-24 06:06] VITALS: BP 145/76
[2020-03-24] MEDS: CARVEDILOL 25 MG TABLET PO SCH ×2 (06:10→17:00)
[2020-03-24] MEDS: MORPHINE SULFATE 4 MG/ML, 1ML IVPush PRN ×2 (06:10→22:42)
[2020-03-24] MEDS: LACTOBACILLUS CHEW TABLET PO SCH ×3 (08:59→21:13)
[2020-03-24] MEDS: SENNA/DOCUSATE TABLET PO SCH (09:00)
[2020-03-24] MEDS: ALLOPURINOL 300 MG TABLET PO SCH (09:00)
[2020-03-24] MEDS: CITALOPRAM 20 MG TABLET PO SCH (09:00)
[2020-03-24] MEDS: LISINOPRIL 20 MG TABLET PO SCH ×2 (09:00→21:13)
[2020-03-24] MEDS: CLOPIDOGREL 75 MG TABLET PO SCH (09:00)
[2020-03-24] MEDS: ENOXAPARIN 40 MG/0.4 ML SQ SCH (09:01)
[2020-03-24] MEDS: CEFTRIAXONE PMX 1GM/50ML 50 ML IV SCH (09:01)
[2020-03-24] MEDS: ACETAMINOPHEN 325 MG TABLET PO PRN ×2 (09:03→22:42)
[2020-03-24] MEDS: PANTOPRAZOLE 40MG TABLET PO SCH (09:03)
[2020-03-24] MEDS: LIDODERM 5% PATCH TD SCH (09:50)
[2020-03-24] MEDS: OXYcodone IR 5MG TABLET PO PRN ×3 (11:25→21:14)
[2020-03-24 12:20] VITALS: BP 117/57
[2020-03-24 16:59] VITALS: BP 134/63
[2020-03-24 21:09] VITALS: BP 157/69
[2020-03-24] MEDS: LIDODERM REMOVE PATCH NOTE XX SCH (21:13)
[2020-03-24] MEDS: ATORVASTATIN 20 MG TABLET PO SCH (21:13)
[2020-03-24] MEDS: MIRTAZAPINE 15 MG TABLET PO SCH (21:14)
[2020-03-24] MEDS: VANCOMYCIN 1,700 MG in SODIUM CHLORIDE 0.9% 250 ML IV SCH (23:24)
[2020-03-25 00:03] VITALS: BP 137/40
[2020-03-25] MEDS: OXYcodone IR 5MG TABLET PO PRN ×3 (04:38→16:39)
[2020-03-25 05:22] LABS: BASOPHILS # (AUTO) 0.02 x10^3/uL (0-0.1); BASOPHILS % (AUTO) 0 % (0-1); EOSINOPHILS # (AUTO) 0.25 x10^3/uL (0-0.4); EOSINOPHILS % (AUTO) 3 % (1-7); LYMPHOCYTES # (AUTO) 0.89 x10^3/uL (1-3.4); LYMPHOCYTES % (AUTO) 11 % (22-44); MD NO; MEAN CORPUSCULAR HEMOGLOBIN 30.8 pg (27.5-34.5); MEAN CORPUSCULAR HGB CONC 32.5 g/dL (33.2-36.2); MEAN PLATELET VOLUME 7.9 fL (7.4-10.4); MONOCYTES # (AUTO) 0.61 x10^3/uL (0.2-0.8); MONOCYTES % (AUTO) 8 % (2-9); NEUTROPHILS # (AUTO) 6.16 x10^3/uL (1.8-6.8); NEUTROPHILS % (AUTO) 78 % (42-75); PLATELET COUNT 213 x10^3/uL (130-400); RED BLOOD COUNT 3.54 x10^6/uL (4.38-5.82); RED CELL DISTRIBUTION WIDTH 16.7 % (9.4-14.8)
[2020-03-25 05:28] LABS: ANION GAP 5 mmol/L (5-15); CALCIUM 8.6 mg/dL (8.5-10.1); CHLORIDE 105 mmol/L (98-107); CREATININE 0.97 mg/dL (0.7-1.3)
[2020-03-25] MEDS: CARVEDILOL 25 MG TABLET PO SCH ×2 (05:53→17:39)
[2020-03-25 07:03] VITALS: BP 143/71
[2020-03-25] MEDS: LACTOBACILLUS CHEW TABLET PO SCH ×3 (08:05→20:17)
[2020-03-25] MEDS: CEFTRIAXONE PMX 1GM/50ML 50 ML IV SCH (08:05)
[2020-03-25] MEDS: PANTOPRAZOLE 40MG TABLET PO SCH (08:05)
[2020-03-25] MEDS: CITALOPRAM 20 MG TABLET PO SCH (08:05)
[2020-03-25] MEDS: LISINOPRIL 20 MG TABLET PO SCH ×2 (08:05→20:17)
[2020-03-25] MEDS: SENNA/DOCUSATE TABLET PO SCH (08:05)
[2020-03-25] MEDS: CLOPIDOGREL 75 MG TABLET PO SCH (08:06)
[2020-03-25] MEDS: ALLOPURINOL 300 MG TABLET PO SCH (08:06)
[2020-03-25] MEDS: FERROUS SULFATE 325 MG TABLET PO SCH (08:06)
[2020-03-25] MEDS: ENOXAPARIN 40 MG/0.4 ML SQ SCH (08:10)
[2020-03-25] MEDS: LIDODERM 5% PATCH TD SCH (10:41)
[2020-03-25 13:14] VITALS: BP 166/66
[2020-03-25] MEDS: MORPHINE SULFATE 4 MG/ML, 1ML IVPush PRN (13:31)
[2020-03-25] MEDS ORDERED: MORPHINE SULFATE 4 MG/ML, 1ML ONE (17:34)
[2020-03-25] MEDS ORDERED: MORPHINE SULFATE 4 MG/ML, 1ML IVPush PRN (18:00)
[2020-03-25 18:18] VITALS: BP 198/79
[2020-03-25] MEDS: MIRTAZAPINE 15 MG TABLET PO SCH (20:17)
[2020-03-25] MEDS: ATORVASTATIN 20 MG TABLET PO SCH (20:19)
[2020-03-25] MEDS: LIDODERM REMOVE PATCH NOTE XX SCH (23:35)
[2020-03-25] MEDS: VANCOMYCIN 1,700 MG in SODIUM CHLORIDE 0.9% 250 ML IV SCH (23:35)
[2020-03-26 01:01] VITALS: BP 158/76
[2020-03-26] MEDS: CARVEDILOL 25 MG TABLET PO SCH ×2 (05:45→18:20)
[2020-03-26] MEDS: OXYcodone IR 5MG TABLET PO PRN ×4 (05:45→22:02)
[2020-03-26 07:01] VITALS: BP 144/77
[2020-03-26] MEDS: LACTOBACILLUS CHEW TABLET PO SCH ×3 (09:21→20:20)
[2020-03-26] MEDS: ALLOPURINOL 300 MG TABLET PO SCH (09:21)
[2020-03-26] MEDS: LISINOPRIL 20 MG TABLET PO SCH ×2 (09:21→20:20)
[2020-03-26] MEDS: SENNA/DOCUSATE TABLET PO SCH (09:21)
[2020-03-26] MEDS: CLOPIDOGREL 75 MG TABLET PO SCH (09:21)
[2020-03-26] MEDS: PANTOPRAZOLE 40MG TABLET PO SCH (09:21)
[2020-03-26] MEDS: ENOXAPARIN 40 MG/0.4 ML SQ SCH (09:22)
[2020-03-26] MEDS: LIDODERM 5% PATCH TD SCH (09:22)
[2020-03-26] MEDS: CITALOPRAM 20 MG TABLET PO SCH (09:25)
[2020-03-26] MEDS: CEFTRIAXONE PMX 1GM/50ML 50 ML IV SCH (10:18)
[2020-03-26] MEDS: VANCOMYCIN 1,700 MG in SODIUM CHLORIDE 0.9% 250 ML IV SCH (12:59)
[2020-03-26 16:00] VITALS: BP 152/76
[2020-03-26 18:35] VITALS: BP 161/79
[2020-03-26] MEDS: ATORVASTATIN 20 MG TABLET PO SCH (20:20)
[2020-03-26] MEDS: MIRTAZAPINE 15 MG TABLET PO SCH (20:21)
[2020-03-26] MEDS: LIDODERM REMOVE PATCH NOTE XX SCH (22:01)
[2020-03-27 00:12] VITALS: BP 125/76
[2020-03-27 05:33] LABS: BASOPHILS # (AUTO) 0.04 x10^3/uL (0-0.1); BASOPHILS % (AUTO) 0 % (0-1); EOSINOPHILS # (AUTO) 0.26 x10^3/uL (0-0.4); EOSINOPHILS % (AUTO) 3 % (1-7); LYMPHOCYTES % (AUTO) 8 % (22-44); MD NO; MEAN CORPUSCULAR HEMOGLOBIN 30.2 pg (27.5-34.5); MEAN CORPUSCULAR HGB CONC 32.2 g/dL (33.2-36.2); MEAN CORPUSCULAR VOLUME 93.8 fL (81-97); MEAN PLATELET VOLUME 7.9 fL (7.4-10.4); MONOCYTES % (AUTO) 6 % (2-9); NEUTROPHILS # (AUTO) 7.27 x10^3/uL (1.8-6.8); NEUTROPHILS % (AUTO) 83 % (42-75); PLATELET COUNT 253 x10^3/uL (130-400); RED BLOOD COUNT 3.32 x10^6/uL (4.38-5.82); RED CELL DISTRIBUTION WIDTH 17.5 % (9.4-14.8)
[2020-03-27 05:38] LABS: ANION GAP 9 mmol/L (5-15); CALCIUM 8.3 mg/dL (8.5-10.1); CHLORIDE 104 mmol/L (98-107); CREATININE 0.88 mg/dL (0.7-1.3)
[2020-03-27] MEDS: CARVEDILOL 25 MG TABLET PO SCH ×2 (06:08→16:05)
[2020-03-27] MEDS: OXYcodone IR 5MG TABLET PO PRN ×3 (06:09→20:38)
[2020-03-27 07:29] VITALS: BP 122/67
[2020-03-27] MEDS: LIDODERM 5% PATCH TD SCH (10:21)
[2020-03-27] MEDS: ENOXAPARIN 40 MG/0.4 ML SQ SCH (10:21)
[2020-03-27] MEDS: CLOPIDOGREL 75 MG TABLET PO SCH (10:22)
[2020-03-27] MEDS: FERROUS SULFATE 325 MG TABLET PO SCH (10:22)
[2020-03-27] MEDS: CITALOPRAM 20 MG TABLET PO SCH (10:22)
[2020-03-27] MEDS: PANTOPRAZOLE 40MG TABLET PO SCH (10:22)
[2020-03-27] MEDS: LACTOBACILLUS CHEW TABLET PO SCH ×3 (10:22→20:37)
[2020-03-27] MEDS: LISINOPRIL 20 MG TABLET PO SCH ×2 (10:22→20:37)
[2020-03-27] MEDS: ALLOPURINOL 300 MG TABLET PO SCH (10:22)
[2020-03-27] MEDS: CEFTRIAXONE PMX 1GM/50ML 50 ML IV SCH (10:37)
[2020-03-27] MEDS: VANCOMYCIN 1,700 MG in SODIUM CHLORIDE 0.9% 250 ML IV SCH (14:21)
[2020-03-27 14:31] VITALS: BP 162/71
[2020-03-27] MEDS: SENNA/DOCUSATE TABLET PO SCH (16:01)
[2020-03-27 18:38] VITALS: BP 146/73
[2020-03-27] MEDS: ATORVASTATIN 20 MG TABLET PO SCH (20:38)
[2020-03-27] MEDS: MIRTAZAPINE 15 MG TABLET PO SCH (20:38)
[2020-03-27] MEDS: LIDODERM REMOVE PATCH NOTE XX SCH (22:39)
[2020-03-27] MEDS ORDERED: OXYcodone IR 5MG TABLET PO PRN (23:00)
[2020-03-28 01:12] VITALS: BP 155/78
[2020-03-28 05:02] LABS: ANION GAP 9 mmol/L (5-15); CALCIUM 8.3 mg/dL (8.5-10.1); CHLORIDE 103 mmol/L (98-107); CREATININE 0.83 mg/dL (0.7-1.3)
[2020-03-28 05:05] LABS: MEAN CORPUSCULAR HEMOGLOBIN 30.4 pg (27.5-34.5); MEAN CORPUSCULAR HGB CONC 32.4 g/dL (33.2-36.2); MEAN CORPUSCULAR VOLUME 93.8 fL (81-97); MEAN PLATELET VOLUME 7.6 fL (7.4-10.4); PLATELET COUNT 268 x10^3/uL (130-400); RED BLOOD COUNT 3.35 x10^6/uL (4.38-5.82); RED CELL DISTRIBUTION WIDTH 16.9 % (9.4-14.8)
[2020-03-28] MEDS: CARVEDILOL 25 MG TABLET PO SCH ×2 (05:16→18:28)
[2020-03-28] MEDS: ACETAMINOPHEN 325 MG TABLET PO PRN ×3 (05:16→20:02)
[2020-03-28 05:59] LABS: BASOPHILS # (AUTO) 0.03 x10^3/uL (0-0.1); BASOPHILS % (AUTO) 0 % (0-1); EOSINOPHILS # (AUTO) 0.22 x10^3/uL (0-0.4); EOSINOPHILS % (AUTO) 2 % (1-7); LYMPHOCYTES # (AUTO) 0.55 x10^3/uL (1-3.4); LYMPHOCYTES % (AUTO) 6 % (22-44); MD SCAN; MONOCYTES # (AUTO) 0.58 x10^3/uL (0.2-0.8); MONOCYTES % (AUTO) 6 % (2-9); NEUTROPHILS # (AUTO) 7.84 x10^3/uL (1.8-6.8); NEUTROPHILS % (AUTO) 85 % (42-75)
[2020-03-28 06:46] VITALS: BP 125/70
[2020-03-28] MEDS ORDERED: ACETAMINOPHEN 650 MG/20.3 ML UDC ONE (11:05)
[2020-03-28] MEDS: ALLOPURINOL 300 MG TABLET PO SCH (11:19)
[2020-03-28] MEDS: LACTOBACILLUS CHEW TABLET PO SCH ×3 (11:19→23:00)
[2020-03-28] MEDS: CITALOPRAM 20 MG TABLET PO SCH (11:19)
[2020-03-28] MEDS: LISINOPRIL 20 MG TABLET PO SCH ×2 (11:19→20:02)
[2020-03-28] MEDS: CLOPIDOGREL 75 MG TABLET PO SCH (11:19)
[2020-03-28] MEDS: PANTOPRAZOLE 40MG TABLET PO SCH (11:19)
[2020-03-28] MEDS: SENNA/DOCUSATE TABLET PO SCH (11:20)
[2020-03-28] MEDS: LIDODERM 5% PATCH TD SCH (11:20)
[2020-03-28] MEDS: CEFTRIAXONE PMX 1GM/50ML 50 ML IV SCH (11:20)
[2020-03-28] MEDS: ENOXAPARIN 40 MG/0.4 ML SQ SCH (11:20)
[2020-03-28 15:14] VITALS: BP 146/71
[2020-03-28 19:51] VITALS: BP 153/85
[2020-03-28] MEDS: CEFDINIR 300 MG CAPSULE PO SCH (20:01)
[2020-03-28] MEDS: ATORVASTATIN 20 MG TABLET PO SCH (20:02)
[2020-03-28] MEDS: MIRTAZAPINE 15 MG TABLET PO SCH (20:02)
[2020-03-28] MEDS: LIDODERM REMOVE PATCH NOTE XX SCH (21:30)
[2020-03-29 00:11] VITALS: BP 138/89
[2020-03-29 05:09] LABS: MEAN CORPUSCULAR HEMOGLOBIN 30.4 pg (27.5-34.5); MEAN CORPUSCULAR HGB CONC 32.4 g/dL (33.2-36.2); MEAN CORPUSCULAR VOLUME 93.7 fL (81-97); MEAN PLATELET VOLUME 7.7 fL (7.4-10.4); PLATELET COUNT 284 x10^3/uL (130-400); RED BLOOD COUNT 3.53 x10^6/uL (4.38-5.82); RED CELL DISTRIBUTION WIDTH 17.4 % (9.4-14.8)
[2020-03-29 05:17] LABS: ANION GAP 10 mmol/L (5-15); CALCIUM 8.6 mg/dL (8.5-10.1); CHLORIDE 107 mmol/L (98-107)
[2020-03-29 05:19] LABS: CREATININE 0.78 mg/dL (0.7-1.3)
[2020-03-29 06:26] LABS: MD YES
[2020-03-29 06:29] LABS: EOS#(MANUAL) 0.72 x10^3/uL (0.0-0.4); EOS% (MANUAL) 9 % (1-7); LYMPH#(MANUAL) 0.88 x10^3/uL (1-3.4); LYMPHS% (MANUAL) 11 % (22-44); MONOS#(MANUAL) 0.16 x10^3/uL (0.3-2.7); MONOS% (MANUAL) 2 % (2-9); SEG#(MANUAL) 6.24 x10^3/uL (1.8-6.8); SEGS% (MANUAL) 78 % (42-75)
[2020-03-29 06:31] LABS: <PLATELET ESTIMATE> ADEQUATE; <PLT MORPHOLOGY> NORMAL PLT MORPH; ANISOCYTOSIS 1+
[2020-03-29 06:32] LABS: OVALOCYTES 1+; POLYCHROMASIA 1+
[2020-03-29] MEDS: CARVEDILOL 25 MG TABLET PO SCH ×2 (06:38→17:07)
[2020-03-29 06:55] VITALS: BP 171/79
[2020-03-29] MEDS ORDERED: ASPIRIN 325 MG TABLET PO ONE (09:30)
[2020-03-29] MEDS: LIDODERM 5% PATCH TD SCH (09:30)
[2020-03-29] MEDS: PANTOPRAZOLE 40MG TABLET PO SCH (09:39)
[2020-03-29] MEDS: CEFDINIR 300 MG CAPSULE PO SCH (09:39)
[2020-03-29] MEDS: LACTOBACILLUS CHEW TABLET PO SCH ×2 (09:39→15:53)
[2020-03-29] MEDS: ALLOPURINOL 300 MG TABLET PO SCH (09:39)
[2020-03-29] MEDS: SENNA/DOCUSATE TABLET PO SCH (09:39)
[2020-03-29] MEDS: CITALOPRAM 20 MG TABLET PO SCH (09:40)
[2020-03-29] MEDS: CLOPIDOGREL 75 MG TABLET PO SCH (09:40)
[2020-03-29] MEDS: LISINOPRIL 20 MG TABLET PO SCH (09:40)
[2020-03-29] MEDS: ENOXAPARIN 40 MG/0.4 ML SQ SCH (09:40)
[2020-03-29] MEDS: FERROUS SULFATE 325 MG TABLET PO SCH (09:40)
[2020-03-29 10:05] VITALS: BP 137/76
[2020-03-29 10:12] LABS: TROPONIN I < 0.015 ng/mL (0.000-0.045)
[2020-03-29 13:21] VITALS: BP_SYST 117; BP_SYST 165; BP_DIAS 57; BP_DIAS 80
[2020-03-29] MEDS ORDERED: ACID1TAB7 PO (14:27)
[2020-03-29] MEDS ORDERED: CEFD300C37 PO (14:27)
[2020-03-29 16:56] LABS: TROPONIN I < 0.015 ng/mL (0.000-0.045)
== END 2020-03-29 17:53 | disposition home or self-care (01) | DRG 178 ==
LOC: ED 04:59 → EDIP 07:29 → 4NW 11:49 → 3N 03-25 17:28
PROVIDERS: ADMIT Internal Medicine; ATTEND Hospitalist
DX: J15.6 Pneumonia due to other Gram-negative bacteria (principal); K76.6 Portal hypertension; R78.81 Bacteremia; E87.1 Hypo-osmolality and hyponatremia; I50.32 Chronic diastolic (congestive) heart failure; J15.9 Unspecified bacterial pneumonia; B96.89 Other specified bacterial agents as the cause of diseases classified elsewhere; I25.10 Atherosclerotic heart disease of native coronary artery without angina pectoris; I25.5 Ischemic cardiomyopathy; I11.0 Hypertensive heart disease with heart failure; K21.9 Gastro-esophageal reflux disease without esophagitis; M10.9 Gout, unspecified; I70.1 Atherosclerosis of renal artery; R53.81 Other malaise; Z20.828 Contact with and (suspected) exposure to other viral communicable diseases; Z80.8 Family history of malignant neoplasm of other organs or systems; Z85.46 Personal history of malignant neoplasm of prostate; Z95.0 Presence of cardiac pacemaker; Z95.2 Presence of prosthetic heart valve; Z95.5 Presence of coronary angioplasty implant and graft; Z90.49 Acquired absence of other specified parts of digestive tract
CPT/HCPCS: 36415; 71045; 72131; 74177; 80048; 80076; 80202; 81001; 82040; 82728; 82962; 83605; 83615; 84145; 84484; 85025; 85379; 85651; 85730; 86850; 86900; 87040; 87181; 93005; 96365; 96372; 96375; 99285; G0378; J0696; J1650; J2405; J3370; Q9967; C9113; J2270; J7030; J7040; J7050; U0001-CS

== ENCOUNTER 2020-05-30 13:20 | Outpatient (CLI) | payer MEDICARE ==
[~2020-05-30 13:20] MED LIST changes: +ACID1TAB7 PO; +AMLO-150 PO; +CEFD300C37 PO
[2020-05-30] MEDS ORDERED: CARV-39 PO (15:23)
[2020-05-30] MEDS ORDERED: PANT40TA5 PO (15:23)
[2020-05-30] MEDS ORDERED: AMLO10TA8 PO (15:23)
[2020-05-30] MEDS ORDERED: LISI-170 PO (15:23)
[2020-05-30] MEDS ORDERED: CITA40TA5 PO (15:23)
== END 2020-05-30 23:59 | disposition home or self-care (01) ==
LOC: STAR 13:20
PROVIDERS: ATTEND Internal Medicine
DX: Z02.9 Encounter for administrative examinations, unspecified (principal)

== ENCOUNTER 2020-06-24 09:54 | Emergency (ER) | payer MEDICARE ==
[~2020-06-24] VITALS: Ht 172.7 cm; Wt 75.0 kg
[~2020-06-24 09:54] MED LIST changes: +CARV-39 PO; +VANC125C3 PO
--- NOTE | 2020-06-24 10:11 | NUR ---
PT WITH C/O DIARRHEA BEGINNING YESTERDAY AFTERNOON, PT REPORTS IT HAS SMELL OF CDIFF. PT WITH RECENT HX CDIFF, COMPLETED ABX A FEW DAYS AGO AFTER HOSPITAL STAY. PT DC 06/10 AFTER TX FOR PNA/SEPSIS AND ALSO DEVELOPED CDIFF. PT DENIES ABD PAIN, N/V. PT TO BP, CONT PULSE OX
[2020-06-24 10:59] LABS: MEAN CORPUSCULAR HGB CONC 31.9 g/dL (33.2-36.2); MEAN CORPUSCULAR VOLUME 97.3 fL (81-97); MEAN PLATELET VOLUME 7.4 fL (7.4-10.4); PLATELET COUNT 308 x10^3/uL (130-400); RED BLOOD COUNT 3.87 x10^6/uL (4.38-5.82); RED CELL DISTRIBUTION WIDTH 17.7 % (9.4-14.8)
[2020-06-24 11:09] LABS: ANION GAP 3 mmol/L (5-15); CALCIUM 8.3 mg/dL (8.5-10.1); CHLORIDE 111 mmol/L (98-107); CREATININE 0.81 mg/dL (0.7-1.3)
[2020-06-24 11:16] LABS: MD YES
[2020-06-24 11:17] LABS: LYMPH#(MANUAL) 1.01 x10^3/uL (1-3.4); LYMPHS% (MANUAL) 6 % (22-44); MONOS#(MANUAL) 1.01 x10^3/uL (0.3-2.7); MONOS% (MANUAL) 6 % (2-9); REACTIVE LYMPHS # (MANUAL) 0.17 x10^3/uL (0-0); REACTIVE LYMPHS % (MANUAL) 1 % (0-0); SEG#(MANUAL) 14.62 x10^3/uL (1.8-6.8); SEGS% (MANUAL) 87 % (42-75)
[2020-06-24 11:18] LABS: <PLATELET ESTIMATE> ADEQUATE; <PLT MORPHOLOGY> NORMAL PLT MORPH; ANISOCYTOSIS 1+
--- NOTE | 2020-06-24 11:30 | NUR ---
PT UNABLE TO PROVIDE STOOL SAMPLE AT THIS TIME, PT WITH CLWR, WILL CALL RN IF ABLE TO PROVIDE SAMPLE
[2020-06-24 12:33] VITALS: BP 153/72
--- NOTE | 2020-06-24 13:50 | NUR ---
Patient ambulated to bedside commode, stool sample collected and sent. patient helped back to bed, call light within reach, side rails up x2, no further needs at this time.
--- NOTE | 2020-06-24 13:53 | NUR ---
BREAK RN-ASSISTED PATIENT TO THE BEDSIDE COMMODE. PATIENT HAD A BM. NOTIFIED DR. SANCHEZ THAT STOOL IS COLLECTED AND IN LAB. WE WILL WAIT FOR LAB STOOL RESULTS AND DISCHARGE PATIENT.
[2020-06-24 14:34] LABS: CLOSTRIDIUM DIFFICILE ANTIGEN POSITIVE; CLOSTRIDIUM DIFFICILE TOXIN POSITIVE (Negative)
== END 2020-06-24 15:13 | disposition home or self-care (01) ==
LOC: ED 10:51
DX: K52.89 Other specified noninfective gastroenteritis and colitis (principal); I10 Essential (primary) hypertension; I25.2 Old myocardial infarction; I25.10 Atherosclerotic heart disease of native coronary artery without angina pectoris; Z86.73 Personal history of transient ischemic attack (TIA), and cerebral infarction without residual deficits
CPT/HCPCS: 36415; 80048; 85025; 87324; 99283

== ENCOUNTER 2020-07-01 10:36 | Day surgery (SDC) | payer MEDICARE ==
[~2020-07-01] VITALS: Ht 172.7 cm; Wt 73.5 kg
[~2020-07-01 10:36] MED LIST changes: -PANT20TA3 PO; +PANT20TA4 PO; -PANT40TA5 PO; +PANT40TA6 PO
[2020-07-01 11:23] VITALS: BP 119/69
[2020-07-01] MEDS ORDERED: LACTATED RINGERS 1,000 ML IV SCH (11:37)
[2020-07-01] MEDS ORDERED: CHLORHEXIDINE 15 ML UDC ONE (11:41)
[2020-07-01] MEDS ORDERED: MIDAZOLAM 1 MG/ML, 2ML ONE (11:51)
[2020-07-01] MEDS ORDERED: FENTANYL PF 100 MCG/2ML ONE (11:51)
[2020-07-01] MEDS ORDERED: PROPOFOL 10 MG/ML, 100ML IV ONE (11:54)
[2020-07-01] MEDS ORDERED: FENTANYL PF 100 MCG/2ML IV PRN (12:00)
[2020-07-01] MEDS ORDERED: ONDANSETRON 2MG/ML, 2ML IVPush PRN (12:00)
[2020-07-01] MEDS ORDERED: ACETAMINOPHEN 325 MG TABLET PO PRN (12:00)
[2020-07-01] MEDS ORDERED: CHLORHEXIDINE 15 ML UDC MM ONE (12:00)
[2020-07-01] MEDS ORDERED: MEPERIDINE/PF 25MG/0.5ML IVPush PRN (12:00)
[2020-07-01] MEDS ORDERED: OXYcodone 5 MG/5 ML ORAL.SOL UDC PO PRN (12:00)
[2020-07-01] MEDS ORDERED: OMNIPAQUE 350 MG/ML, 50 ML BOTTLE ONE (12:40)
== END 2020-07-01 14:45 | disposition home or self-care (01) ==
LOC: OUT 10:36
PROVIDERS: ATTEND Internal Medicine Geriatric Medicine
DX: Z46.59 Encounter for fitting and adjustment of other gastrointestinal appliance and device (principal); Z20.828 Contact with and (suspected) exposure to other viral communicable diseases; K80.51 Calculus of bile duct without cholangitis or cholecystitis with obstruction; Z88.2 Allergy status to sulfonamides; Z95.0 Presence of cardiac pacemaker
CPT/HCPCS: 43264; 43275; 74328; 87635; C1769; J2250; J2704; J3010; J7120; Q9967

== ENCOUNTER 2020-11-25 12:52 | Day surgery (SDC) | payer MEDICARE ==
[2020-11-24 13:33] LABS: ALANINE AMINOTRANSFERASE 59 U/L (12-78); ALBUMIN 3.6 g/dL (3.4-5.0); ANION GAP 5 mmol/L (5-15); CALCIUM 8.9 mg/dL (8.5-10.1); CHLORIDE 107 mmol/L (98-107); CREATININE 0.92 mg/dL (0.7-1.3)
[2020-11-24 13:36] LABS: ALKALINE PHOSPHATASE 277 U/L (45-117); BILIRUBIN,TOTAL 1.1 mg/dL (0.2-1.0); TOTAL PROTEIN 7.5 g/dL (6.4-8.2)
[~2020-11-25] VITALS: Ht 172.7 cm; Wt 84.5 kg
[~2020-11-25 12:52] MED LIST changes: +AMLO-211 PO; -AMLO10TA8 PO; +ASCO100019 PO; -ASPI-515 PO; +ASPI-963 PO; -HYDR-3245 PO; +HYDR1TAB53 PO; +L.AC1CAP6 PO; -LISI40TA PO; +LISI40TA9 PO; -OXYC-302 PO; +OXYC1TAB14 PO; -OXYC5TAB3 PO; +OXYC5TAB98 PO; +VANC125C11 PO
[2020-11-25] MEDS ORDERED: CHLORHEXIDINE 15 ML UDC ONE (13:13)
[2020-11-25] MEDS ORDERED: CHLORHEXIDINE 15 ML UDC MM ONE (14:00)
[2020-11-25] MEDS ORDERED: LACTATED RINGERS 1,000 ML IV SCH (14:00)
[2020-11-25 14:12] VITALS: BP_SYST 212; BP_SYST 217; BP_DIAS 102; BP_DIAS 87
[2020-11-25] MEDS ORDERED: hydrALAzine 20 MG/ML, 1ML ONE (15:58)
[2020-11-25] MEDS ORDERED: ONDANSETRON 2MG/ML, 2ML ONE (15:58)
[2020-11-25] MEDS ORDERED: PROPOFOL 10 MG/ML, 50ML ONE (15:58)
[2020-11-25] MEDS ORDERED: FENTANYL PF 100 MCG/2ML ONE (15:59)
[2020-11-25] MEDS ORDERED: OXYcodone 5 MG/5 ML ORAL.SOL UDC PO PRN (16:30)
[2020-11-25] MEDS ORDERED: METOPROLOL 1 MG/ML, 5ML IV PRN (16:30)
[2020-11-25] MEDS ORDERED: PROMETHAZINE 25 MG/ML, 1ML IVPush PRN (16:30)
[2020-11-25] MEDS ORDERED: LABETALOL 5MG/ML, 20ML IV PRN (16:30)
[2020-11-25] MEDS ORDERED: ACETAMINOPHEN 325 MG TABLET PO PRN (16:30)
[2020-11-25] MEDS ORDERED: FENTANYL PF 100 MCG/2ML IV PRN (16:30)
[2020-11-25] MEDS ORDERED: HALOPERIDOL 5 MG/ML IV PRN (16:30)
[2020-11-25] MEDS ORDERED: EPHEDRINE 50 MG/ML, 1ML IVPush PRN (16:30)
[2020-11-25] MEDS ORDERED: ONDANSETRON 2MG/ML, 2ML IVPush PRN (16:30)
[2020-11-25] MEDS ORDERED: hydrALAzine 20 MG/ML, 1ML IV PRN (16:30)
[2020-11-25] MEDS ORDERED: METOCLOPRAMIDE 5 MG/ML, 2ML IVPush PRN (16:30)
[2020-11-25] MEDS ORDERED: HYDROmorphone 1 MG/ML, 1ML INJ IVPush PRN (16:30)
== END 2020-11-25 17:30 | disposition home or self-care (01) ==
LOC: OUT 12:52
PROVIDERS: ATTEND Internal Medicine Geriatric Medicine
DX: A04.71 Enterocolitis due to Clostridium difficile, recurrent (principal); I11.0 Hypertensive heart disease with heart failure; I50.9 Heart failure, unspecified; I25.10 Atherosclerotic heart disease of native coronary artery without angina pectoris; I48.91 Unspecified atrial fibrillation; F32.9 Major depressive disorder, single episode, unspecified; E78.5 Hyperlipidemia, unspecified; M10.9 Gout, unspecified; Z20.822 Contact with and (suspected) exposure to COVID-19; Z79.899 Other long term (current) drug therapy; Z88.2 Allergy status to sulfonamides
CPT/HCPCS: 36415; 80053; 87635; 93005; G0455; J0360; J2405; J2704; J3010; 99152; 99153